=== PATIENT | male | born 1970 | race Two or more races ===

== ENCOUNTER 2022-10-27 11:51 | Emergency (ER) | payer OTHER ==
[~2022-10-27] VITALS: Ht 185.4 cm; Wt 110.2 kg
[2022-10-27] MEDS ORDERED: ENALAPRIL MALEA10 MG PO (12:30)
== END 2022-10-27 17:10 | disposition home or self-care (01) ==
LOC: ER 11:51
DX: L73.9 Follicular disorder, unspecified (principal); Z91.018 Allergy to other foods